=== PATIENT | female | born 1980 | race Caucasian/White ===

== ENCOUNTER → 2016-10-08 | Outpatient (CLI) | payer OTHER ==
--- NOTE | 2016-10-08 13:35 | US ---
EXAMINATION TYPE: US pelvic complete DATE OF EXAM: 10/08/2016 COMPARISON: NONE CLINICAL HISTORY: R10.2 PELVIC PAIN. RADHA, gen pelvic TECHNIQUE: Transabdominal (TA) EXAM MEASUREMENTS: Right Ovary: 3.8 x 1.3 x 1.9 cm Left Ovary: 2.4 x 1.4 x 1.8 cm 1. Uterus: surgically absent 2. Endometrium: Surgically absent 3. Right Ovary: wnl 4. Left Ovary: wnl 5. Bilateral Adnexa: wnl 6. Posterior cul-de-sac: no free fluid seen IMPRESSION: No significant abnormality.
== END | disposition home or self-care (01) ==
LOC: RADUSWWP 13:07
PROVIDERS: ATTEND Obstetrics & Gynecology
DX: R10.2 Pelvic and perineal pain (principal)
CPT/HCPCS: 76856